=== PATIENT | female | born 1950 | race Caucasian/White ===

== ENCOUNTER 2020-06-04 05:49 | Outpatient (CLI) | payer MEDICARE, OTHER ==
[2020-06-04 14:19] LABS: #Basophils 0.1 thou/uL (0.0-0.2); #Eosinphils 0.1 thou/uL (0.0-0.7); #Lymphocytes 1.8 thou/uL (1.20-3.40); #Monocytes 0.6 thou/uL (0.11-0.59); #Neutrophils 7.2 thou/uL (1.40-6.50); %Basophils 0.7 % (0.0-1.0); %Lymphocytes 18.7 % (21.0-51.0); %Monocytes 6.1 % (0.0-10.0); %Neutrophils 73.6 % (42.0-75.0); Hemoglobin 14.9 g/dL (12.0-16.0); Mean Corpuscular HGB CONC 31.1 g/dL (32.0-36.0); Mean Corpuscular Hemoglobin 27.6 pg (27.0-31.0); Mean Corpuscular Volume 88.6 fL (78.0-98.0); Platelet Count 383 thou/uL (130-400); RBC Distribution Width 12.7 % (11.5-14.5); Red Blood Cell (RBC) Count 5.41 mill/uL (4.20-5.40); White Blood Cell (WBC) Count 9.7 thou/uL (4.8-10.8)
[2020-06-04 14:37] LABS: INR-International Normal Ratio 0.9; Prothrombin Time 11.6 sec (12.0-14.7)
[2020-06-04 14:43] LABS: Bilirubin Negative (Negative); Blood, Urine Negative (Negative); Clarity Clear (Clear); Glucose, Urine (Dipstick) Normal (Negative); Ketone, Urine Negative (Negative); Leukocyte Negative Leu/uL (Negative); Nitrite Negative (Negative); Protein, Urine (Dipstick) 30 mg/dL (Neg-Trace); Specific Gravity, Urine 1.019 (1.002-1.036); Squamous Epithelial 0-3 HPF (0-3); Urobilinogen Normal mg/dL (Less than 2)
[2020-06-04 14:44] LABS: Bacteria/HPF 1+ HPF (None Seen)
[2020-06-04 14:54] LABS: Anion Gap 17 mmol/L (10-20); BUN (Urea Nitrogen) 14 mg/dL (9.8-20.1); Calc. Creatinine Clearance 0 mL/min (70-130); Calcium 9.5 mg/dL (7.8-10.44); Carbon Dioxide 24 mmol/L (23-31); Chloride 100 mmol/L (98-107); Estimated GFR-MDRD 62; Glucose 102 mg/dL (80-115); Potassium 4.5 mmol/L (3.5-5.1); Sodium 136 mmol/L (136-145)
[2020-06-05 13:50] LABS: SARS-CoV-2 MS2 Positive; SARS-CoV-2 N Gene Negative; SARS-CoV-2 S Gene Negative; SARS-CoV-2 by NAA Not Detected (NotDetected); SARS-CoV-2 orf1ab Negative
--- NOTE | 2020-06-05 16:44 | EKG ---
Test Reason : PREOP Blood Pressure : / mmHG Vent. Rate : 077 BPM Atrial Rate : 077 BPM P-R Int : 198 ms QRS Dur : 142 ms QT Int : 404 ms P-R-T Axes : 069 -27 124 degrees QTc Int : 457 ms Sinus rhythm with marked sinus arrhythmia Left bundle branch block Abnormal ECG No previous ECGs available Confirmed by DR. Alfreda HERNANDEZ ([id number]) on 06/05/2020 4:44:11 PM Referred By: James GIL Confirmed By:DR. Alfreda HERNANDEZ
== END 2020-06-04 05:50 | disposition home or self-care (01) ==
LOC: LABBT 05:49
PROVIDERS: ATTEND Orthopaedic Surgery
DX: Z01.818 Encounter for other preprocedural examination (principal); M16.12 Unilateral primary osteoarthritis, left hip; Z20.828 Contact with and (suspected) exposure to other viral communicable diseases
CPT/HCPCS: 80048; 81001; 85025; 85610; 87081; 93005; U0003; 87635; 93010

== ENCOUNTER 2020-06-09 06:20 | Inpatient (IN) | payer MEDICARE ==
[2020-06-03 16:47] VITALS: BMI 40.9
[2020-06-09] MEDS ORDERED: Vancomycin 1.5 GRAM/300 ML BAG ONE (07:46)
[2020-06-09] MEDS ORDERED: Tranexamic Acid 1,000 MG/10 ML VIAL ONE (07:47)
[2020-06-09] MEDS ORDERED: Sodium Chloride 0.9% 100 ML ONE (07:47)
[2020-06-09] MEDS ORDERED: Midazolam HCl 2 mg/2 ml Vial ONE (08:22)
[2020-06-09] MEDS ORDERED: Fentanyl 100 MCG/2 ML VIAL ONE ×4 (08:22→11:57)
[2020-06-09] MEDS ORDERED: Acetaminophen 325 MG TAB PO PRN ×2 (09:05→09:40)
[2020-06-09] MEDS ORDERED: diphenhydrAMINE 50 MG/ML VIAL IVP PRN (09:15)
[2020-06-09] MEDS ORDERED: Naloxone HCl 0.4 mg/ml Vial IV PRN (09:15)
[2020-06-09] MEDS ORDERED: Promethazine HCl 25 MG/ML VIAL IM PRN ×2 (09:15→09:40)
[2020-06-09] MEDS ORDERED: traMADol HCl 50 MG TAB PO PRN ×2 (09:15)
[2020-06-09] MEDS ORDERED: Ondansetron PF 4 MG/2 ML Vial IVP PRN ×2 (09:15→09:40)
[2020-06-09] MEDS ORDERED: Zolpidem Tartrate 5 MG TAB PO PRN ×2 (09:15→09:40)
[2020-06-09] MEDS ORDERED: diphenhydrAMINE 50 MG/ML VIAL IM PRN (09:15)
[2020-06-09] MEDS ORDERED: HYDROcodone/Acetaminophen 5/325 mg Tablet PO PRN ×2 (09:15)
[2020-06-09] MEDS ORDERED: Promethazine HCl 25 MG SUPP PR PRN (09:15)
[2020-06-09] MEDS ORDERED: fentaNYL Citrate/PF 500 MCG, Bupivacaine 10 ML in Sodium Chloride 0.9% 80 ML EPIDURAL SCH (09:15)
[2020-06-09] MEDS ORDERED: Naloxone HCl 0.4 mg/ml Vial IVP PRN (09:15)
[2020-06-09] MEDS ORDERED: Hydrocerin (Eucerin) Cream 120 gm Jar TOP PRN (09:15)
[2020-06-09] MEDS ORDERED: Bupivacaine 0.25% 10 ML VIAL EPIDURAL PRN (09:15)
[2020-06-09] MEDS ORDERED: Bupivacaine/Epinephrine 0.25% 30 ML VIAL ONE (09:38)
[2020-06-09] MEDS ORDERED: diphenhydrAMINE 25 MG CAP PO PRN (09:40)
[2020-06-09] MEDS ORDERED: HYDROcodone/Acetaminophen 10/325 mg Tablet PO PRN ×2 (09:40)
[2020-06-09] MEDS ORDERED: Fentanyl 100 MCG/2 ML VIAL SLOW IVP PRN ×2 (09:40)
[2020-06-09] MEDS ORDERED: Metoprolol Tartrate 5 MG/5 ML VIAL ONE (09:49)
[2020-06-09] MEDS ORDERED: Lidocaine 1% PF 5 ML VIAL ONE (09:49)
[2020-06-09] MEDS ORDERED: PROPOFOL 200 MG/20 ML VIAL ONE (09:49)
[2020-06-09] MEDS ORDERED: Rocuronium Bromide 10 MG/ML (10ML VIAL) ONE (09:49)
[2020-06-09] MEDS ORDERED: EPHEDRINE 25 MG/5 ML SYRINGE ONE (09:49)
[2020-06-09] MEDS ORDERED: PHENYLEPHRINE-NS 100 MCG/ML 10 ML SYRINGE ONE (09:49)
[2020-06-09] MEDS ORDERED: Lidocaine 1.5% w/Epi 1:200K 30 ML VIAL (Epid Use) ONE (09:49)
[2020-06-09] MEDS ORDERED: Glycopyrrolate 0.2 MG/ML 5 ML SYRINGE ONE (09:49)
[2020-06-09] MEDS ORDERED: Ketorolac Tromethamine 30 MG/ML VIAL IVP SCH (12:00)
--- NOTE | 2020-06-09 12:24 | OP ---
DATE OF PROCEDURE: 06/09/2020 SURGEON: Moshe Peterson MD PREOPERATIVE DIAGNOSIS: End-stage bicompartmental osteoarthritis, left hip. POSTOPERATIVE DIAGNOSIS: End-stage bicompartmental osteoarthritis, left hip. PROCEDURE PERFORMED: Press-fit left total hip arthroplasty. OTOLARYNGOLOGIST: Stu Swenson PA-C ANESTHESIA: General via endotracheal tube augmented with indwelling epidural. COMPONENTS USED: [facility] Accolade II size 4 press-fit hip stem with a Trident II 52 mm press-fit acetabular shell, 36 mm 10 degree polyethylene fixed bearing insert, and a ceramic 36 mm -2.5 neck length femoral head. ESTIMATED BLOOD LOSS: 100 mL. FINDINGS: End-stage severe degenerative bicompartmental disease, [id number] arthrosis, periarticular osteophyte formation, large serous effusion, hypertrophic synovium with 900 crystalloid output, 200 mL clear yellow urine. DRAINS: None. SPECIMENS: None. COMPLICATIONS: None. COUNTS: Correct. INDICATION FOR SURGERY: Maryana is a 69-year-old white female who has had progressive hip, groin, thigh pain, and problem with standing and walking for the last 5 to 7 years. She has failed conservative management and elected to proceed with total hip arthroplasty as definitive treatment of her pain. PROCEDURE IN DETAIL: After informed consent was obtained in the preoperative holding area, the patient was taken to the operative suite where general anesthesia was induced. The patient was then positioned in the lateral decubitus position. The hip was then prepped and draped in usual sterile fashion. The patient received preoperative antibiotics. Prior to incision, time-out was called and all members of the surgical team agreed upon site, surgeon, and patient. After this, a longitudinal incision was made directly over the trochanter, noted by palpation extending 2 fingerbreadths above and below the trochanter. The deeper subcutaneous layer was undermined with Bovie electrocautery. The iliotibial band was encountered and incised sharply and the plane below this was developed bluntly. A Charnley retractor was placed to hold this opened. The lateral aspect of the trochanter and the abductor muscles were encountered and then reflected anteriorly off the trochanter using Bovie electrocautery. Once this was completed, the anterior capsule was then encountered and identified and copious capsulotomy was carried out, exposing the femoral neck and head. Dislocation maneuver was then performed and an in situ provisional neck cut was then made using the oscillating saw. Attention was then turned to acetabular preparation. Sequential reaming was carried out up to the appropriate diameter and a trial was then malleted into place with good firm resistance and no pullout. The permanent acetabular shell was then malleted squarely into place, as was the appropriate liner. Once completed, the wound was copiously irrigated and attention was then turned to femoral preparation. Flexion and external rotation were performed of the exposed thigh and femoral elevators were then placed at the proximal aspect of the wound. Canal finder was used to establish the length of the canal and sequential reaming was carried out, followed by broaching. Once the appropriate stability was established with the trial broaches with flexion, extension and rotational stability, we did trial with neutral and 2 mm offset incremental necks. Once the appropriate size was decided upon, with good stability noted with flexion, extension, internal and external rotation and shuck being negative, we removed the femoral trial broach and malletted into place the permanent prosthesis with good firm fit, which was also stable to rotation. Again, the hip felt very stable to flexion, extension, internal and external rotation. Leg lengths appeared near anatomic clinically and we were quite happy with prosthesis placement. Copious irrigation was then carried out through the entirety of the wound. Primary closure of the abductors was accomplished with interrupted #2 Vicryl [id number] stitches and the IT band was then closed with interrupted #2 Vicryl, oversewn with a #2 running barbed Quill stitch. Subcutaneous fascia was closed with running barbed Quill stitch and a subcuticular Monocryl barbed Quill stitch was used for skin closure and augmented with skin cement. A sterile dressing was applied. The procedure was terminated without any complication. All counts were correct. The patient was awakened in the operative suite and taken to the recovery room in stable condition. Job ID: [id number]
[2020-06-09] MEDS ORDERED: Ketorolac Tromethamine 30 MG/ML VIAL IM SCH (14:00)
[2020-06-09] MEDS: Sodium Chloride 0.9% 1,000 ML IV SCH ×2 (15:18→19:50)
[2020-06-09] MEDS: diphenhydrAMINE 25 MG CAP PO PRN ×2 (15:20→20:56)
[2020-06-09] MEDS: CEFAZOLIN 2 GM in Premix Bag 1 BAG IVPB SCH ×2 (16:41→23:52)
[2020-06-09] MEDS: Aspirin 81 mg Enteric Coated Tablet PO SCH (20:44)
[2020-06-09] MEDS: Ubidecarenone 50 MG CAP PO SCH (20:44)
[2020-06-09] MEDS: Ketorolac Tromethamine 30 MG/ML VIAL IVP SCH (20:48)
--- NOTE | 2020-06-09 20:54 | RAD ---
LEFT HIP 2 VIEWS: Date: 06/09/2020 HISTORY: Postop total hip arthroplasty. FINDINGS/IMPRESSION: There are recent postop changes of total left hip arthroplasty in good position and alignment. POS: LIZ
[2020-06-10] MEDS: Ketorolac Tromethamine 30 MG/ML VIAL IVP SCH ×4 (04:00→19:54)
[2020-06-10] MEDS: diphenhydrAMINE 25 MG CAP PO PRN (04:28)
[2020-06-10] MEDS: Sodium Chloride 0.9% 1,000 ML IV SCH ×2 (05:05→15:10)
[2020-06-10 05:10] LABS: Mean Corpuscular HGB CONC 31.9 g/dL (32.0-36.0); Mean Corpuscular Hemoglobin 28.1 pg (27.0-31.0); Mean Platelet Volume 7.6 fL (7.4-10.4); Platelet Count 301 thou/uL (130-400); RBC Distribution Width 12.7 % (11.5-14.5); Red Blood Cell (RBC) Count 3.92 mill/uL (4.20-5.40); White Blood Cell (WBC) Count 14.8 thou/uL (4.8-10.8)
[2020-06-10] MEDS: Loratadine 10 MG TAB PO SCH (09:41)
[2020-06-10] MEDS: Aspirin 81 mg Enteric Coated Tablet PO SCH ×2 (09:41→19:56)
[2020-06-10] MEDS: Ubidecarenone 50 MG CAP PO SCH ×2 (09:42→19:56)
[2020-06-10] MEDS: Ferrous Gluconate 324 MG TAB PO SCH ×2 (09:42→18:23)
[2020-06-10] MEDS: Senokot S 8.6-50 MG TAB PO SCH ×2 (09:42→19:55)
[2020-06-10] MEDS: Multivitamin W/ Minerals 1 TAB PO SCH (09:42)
[2020-06-10] MEDS: Zinc Sulfate 220 MG CAP PO SCH (09:42)
[2020-06-10] MEDS ORDERED: Fentanyl 100 MCG/2 ML VIAL SLOW IVP PRN (10:00)
[2020-06-10] MEDS ORDERED: Bupivacaine 10 ML in Sodium Chloride 0.9% 90 ML IM SCH (10:00)
[2020-06-10] MEDS ORDERED: HYDROcodone/Acetaminophen 10/325 mg Tablet PO PRN ×2 (10:02→10:03)
[2020-06-10] MEDS: Bupivacaine 10 ML in Sodium Chloride 0.9% 90 ML EPIDURAL SCH (11:17)
--- NOTE | 2020-06-10 12:22 | PRG ---
DATE OF SERVICE: 06/10/2020 SUBJECTIVE: Maryana is a 69-year-old female, postop day 1 from a left total hip arthroplasty. She is doing very well. She has no complaints. OBJECTIVE: VITAL SIGNS: Temperature 98.3, pulse 71, respiratory rate 16, and blood pressure is 126/66. GENERAL: She is alert and oriented to person, place, time, and situation. Responsive and appropriate with examiner and conversive. Her incision is clean and closed, and erythema. EXTREMITIES: Neurovascularly intact. No shortening or malrotation. No strikethrough. LABORATORY DATA: Hemoglobin and hematocrit 11.0 and 34.5. IMPRESSION: A 69-year-old female, postop day 1 left total hip arthroplasty. PLAN: Continue current care. Discharge expected home tomorrow. Job ID: [id number]
[2020-06-10] MEDS: traMADol HCl 50 MG TAB PO PRN (18:26)
[2020-06-11] MEDS: traMADol HCl 50 MG TAB PO PRN (00:26)
[2020-06-11] MEDS: Sodium Chloride 0.9% 1,000 ML IV SCH ×2 (02:01→13:21)
[2020-06-11] MEDS: Ketorolac Tromethamine 30 MG/ML VIAL IVP SCH ×2 (03:59→08:31)
[2020-06-11] MEDS: Bupivacaine 10 ML in Sodium Chloride 0.9% 90 ML EPIDURAL SCH (06:04)
[2020-06-11] MEDS: Ubidecarenone 50 MG CAP PO SCH (08:29)
[2020-06-11] MEDS: Aspirin 81 mg Enteric Coated Tablet PO SCH (08:29)
[2020-06-11] MEDS: Multivitamin W/ Minerals 1 TAB PO SCH (08:30)
[2020-06-11] MEDS: Senokot S 8.6-50 MG TAB PO SCH (08:30)
[2020-06-11] MEDS: Loratadine 10 MG TAB PO SCH (08:30)
[2020-06-11] MEDS: Zinc Sulfate 220 MG CAP PO SCH (08:31)
[2020-06-11] MEDS: Ferrous Gluconate 324 MG TAB PO SCH (08:31)
[2020-06-11 16:04] VITALS: BP 158/86; TEMP 98.7
== END 2020-06-11 16:40 | disposition home or self-care (01) | DRG 470 ==
LOC: SDC 06:20 → SJJU 09:40
PROVIDERS: ADMIT Orthopaedic Surgery; ATTEND Orthopaedic Surgery
PROC: 0SRB04A Replacement of Left Hip Joint with Ceramic on Polyethylene Synthetic Substitute, Uncemented, Open Approach (ICD-10-PCS; principal; 2020-06-09)
DX: M16.12 Unilateral primary osteoarthritis, left hip (principal); Z68.41 Body mass index [BMI] 40.0-44.9, adult; J30.2 Other seasonal allergic rhinitis; E78.5 Hyperlipidemia, unspecified; N18.9 Chronic kidney disease, unspecified; I12.9 Hypertensive chronic kidney disease with stage 1 through stage 4 chronic kidney disease, or unspecified chronic kidney disease; Z98.1 Arthrodesis status; Z90.49 Acquired absence of other specified parts of digestive tract; Z79.82 Long term (current) use of aspirin; Z79.899 Other long term (current) drug therapy; Z88.5 Allergy status to narcotic agent; Z88.8 Allergy status to other drugs, medicaments and biological substances; E66.9 Obesity, unspecified
CPT/HCPCS: 36415; 85027; J0690; J1885; J2001; J2250; J2405; J2704; J3010; J3370; J3490; Q0163

== ENCOUNTER 2024-08-26 13:20 | Outpatient (CLI) | payer MEDICARE, OTHER | END 2024-08-26 13:21 | disposition home or self-care (01) | LOC: ULT 13:20 | PROVIDERS: ATTEND Internal Medicine Nephrology | DX: N18.30 Chronic kidney disease, stage 3 unspecified (principal) | CPT/HCPCS: 76770 ==